=== PATIENT | male | born 1945 | race Caucasian/White ===

== ENCOUNTER 2018-04-04 18:22 | Emergency (ER) | payer MEDICARE, OTHER ==
[~2018-04-04] VITALS: Ht 180.3 cm; Wt 108.9 kg
[~2018-04-04 18:22] MED LIST: ALLO100 PO; ASPI325 PO; FAMC500 PO; LISI20 PO; LOPE2C PO; PRED20 PO; ROSU5 PO; SILSUL1TC TOP; TESTOSTERONE CREAM TOP; Zofran8 MG PO
== END 2018-04-04 20:54 | disposition home or self-care (01) ==
LOC: ER 18:22
DX: S63.204A Unspecified subluxation of right ring finger, initial encounter (principal); I10 Essential (primary) hypertension; E78.5 Hyperlipidemia, unspecified; Z79.899 Other long term (current) drug therapy; Z79.82 Long term (current) use of aspirin; W23.0XXA Caught, crushed, jammed, or pinched between moving objects, initial encounter
CPT/HCPCS: 73140

== ENCOUNTER → 2018-11-03 | Outpatient (CLI) | payer MEDICARE, OTHER ==
[~2018-11-03] MED LIST changes: +LOSA25 PO
== END | disposition home or self-care (01) ==
LOC: LAB SHORT 10:02 → PLD 10:02
DX: D22.62 Melanocytic nevi of left upper limb, including shoulder (principal)
CPT/HCPCS: 88305

== ENCOUNTER → 2018-11-17 | Outpatient (CLI) | payer MEDICARE | END | disposition home or self-care (01) | LOC: LAB SHORT 13:02 → PLD 13:02 | DX: C44.319 Basal cell carcinoma of skin of other parts of face (principal) | CPT/HCPCS: 88305 ==

== ENCOUNTER → 2018-11-23 | Outpatient (CLI) | payer MEDICARE, OTHER | END | disposition home or self-care (01) | LOC: LAB SHORT 13:42 → PLD 13:42 | DX: D03.62 Melanoma in situ of left upper limb, including shoulder (principal) | CPT/HCPCS: 88305 ==

== ENCOUNTER 2018-12-06 10:45 | Day surgery (SDC) | payer MEDICARE, OTHER ==
[~2018-12-06] VITALS: Ht 180.3 cm; Wt 107.0 kg
--- NOTE | 2018-12-06 12:00 | NUR ---
12/06/18 1200 Delvin Mcduffie INJECTED 5ML SALINE TO LIFT POLYP FOR REMOVAL.
--- NOTE | 2018-12-06 12:54 | NUR ---
12/06/18 1254 Delvin Mcduffie PT DENIES WANTING ANYTHING TO DRINK IN STEP DOWN.
== END 2018-12-06 12:45 | disposition home or self-care (01) ==
LOC: ORSCSDS 10:45
PROVIDERS: Internal Medicine Gastroenterology
PROC: 0DBH8ZX Excision of Cecum, Via Natural or Artificial Opening Endoscopic, Diagnostic (ICD-10-PCS; principal; 2018-12-06 12:30)
PROC: 0DBK8ZX Excision of Ascending Colon, Via Natural or Artificial Opening Endoscopic, Diagnostic (ICD-10-PCS; principal; 2018-12-06 12:30)
PROC: 0DBL8ZX Excision of Transverse Colon, Via Natural or Artificial Opening Endoscopic, Diagnostic (ICD-10-PCS; principal; 2018-12-06 12:30)
DX: Z12.11 Encounter for screening for malignant neoplasm of colon (principal); D12.0 Benign neoplasm of cecum; D12.2 Benign neoplasm of ascending colon; D12.3 Benign neoplasm of transverse colon; K57.30 Diverticulosis of large intestine without perforation or abscess without bleeding; E11.9 Type 2 diabetes mellitus without complications; Z79.899 Other long term (current) drug therapy
CPT/HCPCS: 82947; 88305; J7120

== ENCOUNTER → 2019-04-28 | Outpatient (CLI) | payer MEDICARE, OTHER ==
[~2019-04-28] MED LIST changes: +ALLER-TEC D 5-1 EACH PO; -ASPI325 PO; +ASPI81CH PO; +CLOP75 PO; +Isosorbide Mono30 MG PO; +Lopressor 25 mg25 MG PO; +Loratadine10 MG PO; +METO25ER PO; +NITR.4SL SL; +OMEPRAZOLE20 MG PO; +ROSU10TA PO; -ROSU5 PO; +Senna-Docusate1 EACH PO; +THERA1 EACH PO; +TICA90TA PO
[2019-04-29 14:40] LABS: Stool Occult Bld Immuno 1 Negative (NEGATIVE); Stool Occult Bld Immuno 2 Negative (NEGATIVE); Stool Occult Bld Immuno 3 Negative (NEGATIVE)
== END | disposition home or self-care (01) ==
LOC: LAB SHORT 18:45 → LAB 18:45 → LAB FUT 04-25 08:10
PROVIDERS: Internal Medicine
DX: D64.9 Anemia, unspecified (principal); Z79.899 Other long term (current) drug therapy
CPT/HCPCS: 82274

== ENCOUNTER 2019-05-20 06:39 | Observation (INO) | payer MEDICARE, OTHER ==
[~2019-05-20] VITALS: Ht 178 cm; Wt 99.8 kg
[~2019-05-20 06:39] MED LIST changes: -ALLER-TEC D 5-1 EACH PO; -CLOP75 PO; -Isosorbide Mono30 MG PO; -Lopressor 25 mg25 MG PO; -Loratadine10 MG PO; -METO25ER PO; -NITR.4SL SL; -OMEPRAZOLE20 MG PO; -Senna-Docusate1 EACH PO; -THERA1 EACH PO; -TICA90TA PO
[2019-05-20 07:00] LABS: BASOPHILS ABSOLUTE AUTO 0.12 K/mm3 (0.00-0.23); BASOPHILS PERCENT AUTO 1 % (0-2); EOSINOPHILS ABSOLUTE AUTO 0.45 K/mm3 (0.00-0.68); EOSINOPHILS PERCENT AUTO 3 % (0-6); Hematocrit 43.8 % (37.0-53.0); Hemoglobin 13.1 g/dL (13.5-17.5); IMMATURE GRAN PERCENT AUTO 1 % (0-1); LYMPHOCYTES ABSOLUTE AUTO 2.23 K/mm3 (0.84-5.20); LYMPHOCYTES PERCENT AUTO 14 % (21-46); MONOCYTES ABSOLUTE AUTO 1.17 K/mm3 (0.16-1.47); MONOCYTES PERCENT AUTO 8 % (4-13); Mean Corpuscular HGB 25.7 pg (26.0-34.0); Mean Corpuscular HGB Conc 29.9 g/dL (31.5-36.5); Mean Platelet Volume 9.8 fL (9.1-12.4); NEUTROPHILS ABSOLUTE AUTO 11.47 K/mm3 (1.96-9.15); NEUTROPHILS PERCENT AUTO 74 % (41-73); Platelet Count 498 K/mm3 (150-400); RDW Coefficient Variation 17.1 % (11.7-14.2); RDW Standard Deviation 53.1 fL (35.1-46.3); Red Blood Cell Count 5.09 M/mm3 (4.30-5.90); White Blood Cell Count 15.54 K/mm3 (4.00-11.30)
[2019-05-20 07:06] LABS: Mean Corpuscular Volume 86 fL (80-100)
[2019-05-20] MEDS ORDERED: Lopressor 25 mg25 MG PO (07:10)
[2019-05-20] MEDS ORDERED: TICA90TA PO (07:11)
[2019-05-20] MEDS ORDERED: NITR.4SL SL (07:11)
[2019-05-20] MEDS ORDERED: OMEPRAZOLE20 MG PO (07:12)
[2019-05-20] MEDS ORDERED: ALLER-TEC D 5-1 EACH PO (07:12)
[2019-05-20] MEDS ORDERED: THERA1 EACH PO (07:12)
[2019-05-20] MEDS ORDERED: Senna-Docusate1 EACH PO (07:13)
[2019-05-20 07:22] LABS: Albumin, Blood 3.7 g/dL (3.4-5.0); Albumin/Globulin Ratio 0.7 (0.8-1.8); Bilirubin, Total 0.4 mg/dL (0.1-1.0); Bun/Creatinine Ratio 15.4 (12.0-20.0); Calcium, Blood 9.8 mg/dL (8.5-10.1); Creatinine, Blood 1.36 mg/dL (0.60-1.20); Globulin, Blood 5.6 g/dL (2.2-4.0); Potassium, Blood 4.3 mmol/L (3.5-5.5); Total Protein, Blood 9.3 g/dL (6.4-8.2)
[2019-05-20 07:54] LABS: Troponin I 9.62 ng/mL (0.000-0.040)
--- NOTE | 2019-05-20 18:28 | NUR ---
pt laying in bed watching tv. denies any complaints or needs, states hes just hanging out. tr band site has occlusive dressing in place, no s/s bleeding. arm board in place, call light in reach.
[2019-05-21 00:44] LABS: Hematocrit 36.7 % (37.0-53.0); Hemoglobin 10.9 g/dL (13.5-17.5); Mean Corpuscular HGB 25.8 pg (26.0-34.0); Mean Corpuscular HGB Conc 29.7 g/dL (31.5-36.5); Mean Corpuscular Volume 87 fL (80-100); Mean Platelet Volume 9.8 fL (9.1-12.4); Platelet Count 379 K/mm3 (150-400); RDW Coefficient Variation 17.1 % (11.7-14.2); RDW Standard Deviation 54.2 fL (35.1-46.3); Red Blood Cell Count 4.22 M/mm3 (4.30-5.90)
[2019-05-21 00:59] LABS: Bun/Creatinine Ratio 16.8 (12.0-20.0); Calcium, Blood 8.6 mg/dL (8.5-10.1); Creatinine, Blood 1.25 mg/dL (0.60-1.20); Potassium, Blood 4.4 mmol/L (3.5-5.5)
--- NOTE | 2019-05-21 01:29 | NUR ---
Assumed care of pt at approx 1900. VSS. pt presents in bed, watching TV. Arm board in place, access site free from bleed, free from hematoma. Pt a&o, responds appropriately, able to make needs known. Pt able to amb without assist to bathroom independantly. Pt denies chest pain or pressure, denies SOB. See shift assessment for detailed assessment. Will continue to montior.
--- NOTE | 2019-05-21 06:36 | NUR ---
Shift Summary No acute changes this shift. VSS. Breathing remains easy and unlabored, RA, denies SOB. Pt denies chest pain/pressure. Pt slept through much of this shift. Pt states he is "ready to go home". Critical high trop, but trending down. Pt is independant in room. Will continue to monitor.
[2019-05-21] MEDS ORDERED: CLOP75 PO (10:38)
--- NOTE | 2019-05-21 11:42 | NUR ---
DISCHARGE PT DISCHARGED HOME VIA W/C ACCOMPANIED BY CREDIT REVIEW ANALYST. GAVE PT HAND WROTE PERSCRIPTION FOR PLAVIX. LIGHT BULB REPLACER SAT WITH PT / FOR HEART HEALTHY DIET. CONTINUE POT.
== END 2019-05-21 11:46 | disposition home or self-care (01) ==
LOC: ER 06:39 → PCU 07:34 → ICUW 07:36 → PCU 07:36
PROVIDERS: Emergency Medicine; ADMIT Internal Medicine Interventional Cardiology
PROC: 4A023N7 Measurement of Cardiac Sampling and Pressure, Left Heart, Percutaneous Approach (ICD-10-PCS; principal; 2019-05-20)
PROC: B2111ZZ Fluoroscopy of Multiple Coronary Arteries using Low Osmolar Contrast (ICD-10-PCS; principal; 2019-05-20)
DX: I21.09 ST elevation (STEMI) myocardial infarction involving other coronary artery of anterior wall (principal); I25.10 Atherosclerotic heart disease of native coronary artery without angina pectoris; E78.5 Hyperlipidemia, unspecified; I10 Essential (primary) hypertension; M10.9 Gout, unspecified; R77.8 Other specified abnormalities of plasma proteins; Z95.5 Presence of coronary angioplasty implant and graft; Z88.8 Allergy status to other drugs, medicaments and biological substances; Z79.82 Long term (current) use of aspirin; Z79.899 Other long term (current) drug therapy; Z96.653 Presence of artificial knee joint, bilateral; Z86.12 Personal history of poliomyelitis; Z98.1 Arthrodesis status
CPT/HCPCS: 36415; 71045; 80048; 80053; 82947; 83690; 84484; 85025; 85027; 93005; 93010; 93454; 93458; 99152; 99153; 99285-25; C1769; C1894; G0378; J1644; J2250; J3010; J7030; J7040; Q9967

== ENCOUNTER 2019-06-14 19:07 | Inpatient (IN) | payer MEDICARE, OTHER ==
[~2019-06-14] VITALS: Ht 180.3 cm; Wt 101.2 kg
[~2019-06-14 19:07] MED LIST changes: +ALLER-TEC D 5-1 EACH PO; +CLOP75 PO; +Lopressor 25 mg25 MG PO; +NITR.4SL SL; +OMEPRAZOLE20 MG PO; +Senna-Docusate1 EACH PO; +THERA1 EACH PO; +TICA90TA PO
[2019-06-14 19:28] LABS: BASOPHILS ABSOLUTE AUTO 0.13 K/mm3 (0.00-0.23); BASOPHILS PERCENT AUTO 1 % (0-2); EOSINOPHILS PERCENT AUTO 8 % (0-6); Hemoglobin 11.5 g/dL (13.5-17.5); IMMATURE GRAN ABSOLUTE AUTO 0.03 K/mm3 (0.00-0.10); IMMATURE GRAN PERCENT AUTO 0 % (0-1); LYMPHOCYTES ABSOLUTE AUTO 2.04 K/mm3 (0.84-5.20); LYMPHOCYTES PERCENT AUTO 22 % (21-46); MONOCYTES ABSOLUTE AUTO 0.72 K/mm3 (0.16-1.47); MONOCYTES PERCENT AUTO 8 % (4-13); Mean Corpuscular HGB 25.8 pg (26.0-34.0); Mean Corpuscular HGB Conc 30.3 g/dL (31.5-36.5); Mean Corpuscular Volume 85 fL (80-100); Mean Platelet Volume 9.8 fL (9.1-12.4); NEUTROPHILS ABSOLUTE AUTO 5.51 K/mm3 (1.96-9.15); NEUTROPHILS PERCENT AUTO 60 % (41-73); Platelet Count 356 K/mm3 (150-400); RDW Coefficient Variation 16.9 % (11.7-14.2); RDW Standard Deviation 52.4 fL (35.1-46.3); Red Blood Cell Count 4.45 M/mm3 (4.30-5.90); White Blood Cell Count 9.13 K/mm3 (4.00-11.30)
[2019-06-14 19:52] LABS: Alanine Aminotransfer (ALT/SGP 16 U/L (12-78); Albumin, Blood 3.5 g/dL (3.4-5.0); Albumin/Globulin Ratio 0.8 (0.8-1.8); Alk Phos 104 U/L (50-136); Anion Gap 7 mmol/L (6-16); Aspartate Aminotrans (AST/SGOT 27 U/L (12-37); Bilirubin, Total 0.2 mg/dL (0.1-1.0); Blood Urea Nitrogen 16 mg/dL (8-24); Bun/Creatinine Ratio 13.4 (12.0-20.0); CO2, Blood 25 mmol/L (21-32); Calcium, Blood 8.8 mg/dL (8.5-10.1); Chloride, Blood 107 mmol/L (98-108); Creatinine, Blood 1.19 mg/dL (0.60-1.20); Globulin, Blood 4.6 g/dL (2.2-4.0); Glomerular Filtration Rate >60 (60-); Glucose, Blood 139 mg/dL (70-99); International Normalized Ratio 0.93; Potassium, Blood 3.6 mmol/L (3.5-5.5); Prothrombin Time Results 9.9 Sec (9.7-11.5); Sodium, Blood 139 mmol/L (136-145); Total Protein, Blood 8.1 g/dL (6.4-8.2)
[2019-06-14 22:04] LABS: Percent Saturation 16.2 % (20.0-50.0)
[2019-06-15 03:28] LABS: BASOPHILS ABSOLUTE AUTO 0.14 K/mm3 (0.00-0.23); BASOPHILS PERCENT AUTO 2 % (0-2); EOSINOPHILS ABSOLUTE AUTO 0.76 K/mm3 (0.00-0.68); EOSINOPHILS PERCENT AUTO 9 % (0-6); Hemoglobin 11.1 g/dL (13.5-17.5); IMMATURE GRAN ABSOLUTE AUTO 0.03 K/mm3 (0.00-0.10); IMMATURE GRAN PERCENT AUTO 0 % (0-1); LYMPHOCYTES ABSOLUTE AUTO 2.17 K/mm3 (0.84-5.20); LYMPHOCYTES PERCENT AUTO 27 % (21-46); MONOCYTES ABSOLUTE AUTO 0.61 K/mm3 (0.16-1.47); MONOCYTES PERCENT AUTO 8 % (4-13); Mean Corpuscular HGB 26.2 pg (26.0-34.0); Mean Corpuscular Volume 87 fL (80-100); Mean Platelet Volume 9.5 fL (9.1-12.4); NEUTROPHILS ABSOLUTE AUTO 4.43 K/mm3 (1.96-9.15); NEUTROPHILS PERCENT AUTO 54 % (41-73); Platelet Count 308 K/mm3 (150-400); RDW Coefficient Variation 16.9 % (11.7-14.2); Red Blood Cell Count 4.24 M/mm3 (4.30-5.90); White Blood Cell Count 8.14 K/mm3 (4.00-11.30)
--- NOTE | 2019-06-15 04:07 | NUR ---
SHIFT SUMMARY RECEIVED REPORT FROM ED RN. PATIENT ARRIVED TO MEDICAL UNIT VIA STRETCHER. ABLE TO SELF TRANSFER TO BED. ORIENTED TO ROOM AND CALL SYSTEM. A/O, ABLE TO MAKE NEEDS KNOWN. COOPERATIVE WITH CARE. ANSWERS QUESTIONS APPROPRIATELY. NO C/O PAIN/DISCOMFORT OR SOB. HEPARIN DRIP INFUSING W/O COMPLICATION TO LAC FIELD. APPEARED TO REST MUCH OF THE NIGHT. NO ACUTE CHANGES. VSS/AFEBRILE. BED IN LOWEST POSITION. CALL LIGHT AND BELONGINGS WITHIN REACH. WCTM. REPORT TO ONCOMING RN.
--- NOTE | 2019-06-15 13:40 | NUR ---
PT TO SURGICAL DEPT FOR PROCEDURE
--- NOTE | 2019-06-15 15:15 | NUR ---
PT TRANSFERRED FROM [facility] OPERATOR TO ICU 13. REPORT RECIEVED FROM MICHAEL ALVAREZ. CALL TO MEDICAL FLOOR AND REPORT RECIEVED FROM ADA RN. PT HAS TR BAND TO RIGHT WRIST, NO SIGNS OF BLEEDING, OOZING, KNOTS. VSS. FAMILY AT BEDSIDE. NO FURTHER NEEDS OR CONCERNS AT THIS TIME.
--- NOTE | 2019-06-15 17:33 | NUR ---
SHIFT SUMMARY: PT IS PCU STATUS. TR BAND IN PLACE WITH NO SIGNS OF BLEEDING, DRAINAGE OR HEMATOMA. FAMILY AT BEDSIDE. MEDICATED ONCE FOR PAIN WITH TYLENOL. VSS, NO FURTHER NEEDS OR CONCERNS AT THIS TIME.
--- NOTE | 2019-06-15 19:20 | NUR ---
RECIEVED HAND OFF FROM KIM BINGHAM USING SBAR DURING BEDSIDE REPORT. LYING IN LOW FOWLERS WITH EYES CLOSED. AAO X3, MANE, FOLLOWS ALL COMMANDS. REORIENTED TO ROOM, CALL SYSTEM, AND POC, VOICES UNDERSTANDING. RESPIRATIONS EVEN AND UNLABORED ON ROOM AIR. LUNG SOUNDS CLEAR BILATERALLY. ABDOMEN SOFT AND NONDISTENDED. BOWEL SOUNDS PRESENT IN ALL QUADS. LEFT AC 18G FIELD START SL PIV IS PATENT, FLUSHING WITH EASE. TR BAND ASSESSED, HOMEOSTASIS NOTED. 2ML AIR REMOVED. SITE MONITORED FOR 2 MIN, HOMEOSTASIS MAINTINED. CONTINENT OF BOWEL AND BLADDER, USES URINAL AT BEDSIDE. LACEY HOSE IN PLACE. DEINES PAIN, DISCOMFORT, OR FURTHER NEEDS AT THIS TMME. WILL CONTINUE TO MONITOR.
--- NOTE | 2019-06-15 19:50 | NUR ---
TR BAND ASSESSED, HOMEOSTASIS NOTED. 2ML AIR REMOVED. SITE MONITORED FOR 2 MIN, HOMEOSTASIS MAINTINED. DEINES PAIN, DISCOMFORT, OR FURTHER NEEDS AT THIS TMME. WILL CONTINUE TO MONITOR.
--- NOTE | 2019-06-15 20:20 | NUR ---
TR BAND ASSESSED, HOMEOSTASIS NOTED. 2ML AIR REMOVED. SITE MONITORED FOR 2 MIN, HOMEOSTASIS MAINTINED. DENIES PAIN, DISCOMFORT, OR FURTHER NEEDS AT THIS TIME. WILL CONTINUE TO MONITOR.
--- NOTE | 2019-06-15 21:50 | NUR ---
TR BAND ASSESSED, HOMEOSTASIS NOTED. FINAL 2ML AIR REMOVED. SITE MONITORED FOR 2 MIN, HOMEOSTASIS MAINTINED. DENIES PAIN, DISCOMFORT, OR FURTHER NEEDS AT THIS TIME. WILL CONTINUE TO MONITOR.
--- NOTE | 2019-06-15 23:00 | NUR ---
TR BAND REMOVED AFTER 1HR PAST DEFLATION TIME. NO SWELLING, OOZING, BLEEDING, OR HEMATOMAS NOTED. AREA CLEANED WITH CHG AND OPSITE TEGADERM APPLIED, TOLERATED WELL. GOOD DISTAL PULSES NOTED, DENIES NUMBNESS OR TINGLING AT THIS TIME. WHITE ARMBOARD REAPPLIED, INSTRUCTED TO LEAVE INPLACE FOR 48HRS. REPORT CALLED TO KIM LOCO USING SBAR. ALL PERSONAL BELONGINGS GATHERED AND TAKEN WITH PT VIA WHEELCHAIR TO PCU ROOM 4. TRANSFERED SELF FROM WHEELCHAIR TO BED WITH STANDBY ASSIST, TOLERATED WELL. SAFETY MEASURES IN PLACE.
--- NOTE | 2019-06-15 23:13 | NUR ---
Pt arrived to PCU 4 at approx 2305 via wheelchair with cyber incident responder and ICU CN with pt. Pt able to transfer from wheelchair to bed independantly. Pt denies chest pain, denies chest pressure, denies SOB. Pt denies lightheadedness with changes in positions. Lungs clear throughout, breathing easy, even and unlabored. Pt on tele and NSR with HR 70. O2 stable on RA. Pt in no apparent sign of distress. R Radial access site visualized with BACK SIZERKarolina. Site soft, free from hematoma, free from bleed. Transparent tegaderm in place, arm board in place. Pt verbalized R arm restrictions. Will continue to monitor.
[2019-06-16 04:26] LABS: BASOPHILS ABSOLUTE AUTO 0.11 K/mm3 (0.00-0.23); BASOPHILS PERCENT AUTO 1 % (0-2); EOSINOPHILS ABSOLUTE AUTO 0.65 K/mm3 (0.00-0.68); EOSINOPHILS PERCENT AUTO 7 % (0-6); Hematocrit 37.5 % (37.0-53.0); Hemoglobin 11.3 g/dL (13.5-17.5); IMMATURE GRAN ABSOLUTE AUTO 0.03 K/mm3 (0.00-0.10); IMMATURE GRAN PERCENT AUTO 0 % (0-1); LYMPHOCYTES ABSOLUTE AUTO 1.15 K/mm3 (0.84-5.20); LYMPHOCYTES PERCENT AUTO 12 % (21-46); MONOCYTES ABSOLUTE AUTO 0.73 K/mm3 (0.16-1.47); MONOCYTES PERCENT AUTO 8 % (4-13); Mean Corpuscular HGB Conc 30.1 g/dL (31.5-36.5); Mean Corpuscular Volume 86 fL (80-100); Mean Platelet Volume 9.8 fL (9.1-12.4); NEUTROPHILS ABSOLUTE AUTO 6.92 K/mm3 (1.96-9.15); NEUTROPHILS PERCENT AUTO 72 % (41-73); Platelet Count 314 K/mm3 (150-400); RDW Coefficient Variation 16.9 % (11.7-14.2); RDW Standard Deviation 53.3 fL (35.1-46.3); Red Blood Cell Count 4.35 M/mm3 (4.30-5.90); White Blood Cell Count 9.59 K/mm3 (4.00-11.30)
[2019-06-16 04:45] LABS: Anion Gap 5 mmol/L (6-16); Blood Urea Nitrogen 17 mg/dL (8-24); Bun/Creatinine Ratio 14.8 (12.0-20.0); CHOL/HDL RATIO 2.3; CO2, Blood 26 mmol/L (21-32); Calcium, Blood 8.8 mg/dL (8.5-10.1); Chloride, Blood 107 mmol/L (98-108); Cholesterol 98 mg/dL (50-200); Creatinine, Blood 1.15 mg/dL (0.60-1.20); Glomerular Filtration Rate >60 (60-); Glucose, Blood 126 mg/dL (70-99); HDL Cholesterol 43 mg/dL (>39); LDL/HDL RATIO 0.8; Low Density Lipoprotein Chol 35 mg/dL (0-110); Potassium, Blood 4.5 mmol/L (3.5-5.5); Sodium, Blood 138 mmol/L (136-145); Triglycerides 102 mg/dL (30-160); Very Low Density Lipoprot Chol 20 mg/dL (6-32)
--- NOTE | 2019-06-16 07:42 | NUR ---
Shift Summary No acute changes since assuming care of pt this shift. Pt remains with VSS, no apparent sign of distress, breathing remains easy and unlabored, RA, MANE, uses call light appropriately, ambulates without assistance to bathroom to void in urinal, compliant with R arm restriction, arm board in place. No changes from intial transfer assessment. No acute events on tele. Pt denies chest pain/ pressure. Introduced to day RNKarla, and care assumed.
[2019-06-16] MEDS ORDERED: Isosorbide Mono30 MG PO (09:47)
[2019-06-16] MEDS ORDERED: Loratadine10 MG PO (09:48)
[2019-06-16] MEDS ORDERED: METO25ER PO (09:48)
--- NOTE | 2019-06-16 10:20 | NUR ---
ASSUMED CARE PT ALERT AND ORIENTED. VS STABLE. SOLAR PANEL INSTALLER IN THIS AM WITH INSTRUCTIONS FOR PT FOR DISCHARGE. ORDERS FOR DISCHARGE PROVIDED. PT GIVEN DISCHARGE INSTRUCTIONS. NEW MEDICATIONS EXPLAINED TO PT. PT EDUCATED ON CARE AFTER ANGIOGRAM. ALL QUESTIONS ANSWERED. PT WAITING FOR HIS .
== END 2019-06-16 10:39 | disposition home or self-care (01) | DRG 287 ==
LOC: ER 19:07 → MEDS 19:08 → ICUW 06-15 15:10 → PCU 06-15 23:05
PROVIDERS: Emergency Medicine; Internal Medicine Cardiovascular Disease; ADMIT Internal Medicine
PROC: B2111ZZ Fluoroscopy of Multiple Coronary Arteries using Low Osmolar Contrast (ICD-10-PCS; principal; 2019-06-15)
PROC: B241ZZ3 Ultrasonography of Multiple Coronary Arteries, Intravascular (ICD-10-PCS; 2019-06-15)
DX: I25.110 Atherosclerotic heart disease of native coronary artery with unstable angina pectoris (principal); I10 Essential (primary) hypertension; M10.9 Gout, unspecified; E78.5 Hyperlipidemia, unspecified; G14 Postpolio syndrome; Z98.1 Arthrodesis status; Z96.653 Presence of artificial knee joint, bilateral; Z79.82 Long term (current) use of aspirin; E66.9 Obesity, unspecified; Z68.30 Body mass index [BMI] 30.0-30.9, adult; Z95.5 Presence of coronary angioplasty implant and graft; E11.9 Type 2 diabetes mellitus without complications; Z79.02 Long term (current) use of antithrombotics/antiplatelets; D64.9 Anemia, unspecified
CPT/HCPCS: 36415; 71046; 76937; 80048; 80053; 80061; 82728; 83036; 83540; 83550; 84443; 84484; 85025; 85347; 85610; 85730; 92978; 93005; 93010; 93306; 93454; 93798; 96365; 96366; 96376; 99152; 99153; 99285-25; A9270; C1753; C1769; C1887; C1894; G0378; J1644; J2250; J3010; J7030; Q9967

== ENCOUNTER 2020-04-12 14:32 | Emergency (ER) | payer MEDICARE, OTHER ==
[~2020-04-12] VITALS: Ht 180.3 cm; Wt 99.8 kg
[~2020-04-12 14:32] MED LIST changes: -ASPI81CH PO; +Aspirin EC81 MG PO; +Daily Multiple1 EACH PO; +Isosorbide Mono30 MG PO; +Loratadine10 MG PO; +METO25ER PO; -THERA1 EACH PO
[2020-04-12] MEDS ORDERED: MONT10T PO (14:37)
[2020-04-12 14:43] LABS: BASOPHILS ABSOLUTE AUTO 0.12 K/mm3 (0.00-0.23); BASOPHILS PERCENT AUTO 1 % (0-2); EOSINOPHILS ABSOLUTE AUTO 0.38 K/mm3 (0.00-0.68); EOSINOPHILS PERCENT AUTO 3 % (0-6); Hematocrit 45.7 % (37.0-53.0); Hemoglobin 14.9 g/dL (13.5-17.5); IMMATURE GRAN ABSOLUTE AUTO 0.05 K/mm3 (0.00-0.10); IMMATURE GRAN PERCENT AUTO 0 % (0-1); LYMPHOCYTES ABSOLUTE AUTO 3.08 K/mm3 (0.84-5.20); LYMPHOCYTES PERCENT AUTO 27 % (21-46); MONOCYTES ABSOLUTE AUTO 0.83 K/mm3 (0.16-1.47); MONOCYTES PERCENT AUTO 7 % (4-13); Mean Corpuscular HGB 28.6 pg (26.0-34.0); Mean Corpuscular HGB Conc 32.6 g/dL (31.5-36.5); Mean Corpuscular Volume 88 fL (80-100); Mean Platelet Volume 10.2 fL (9.1-12.4); NEUTROPHILS PERCENT AUTO 61 % (41-73); Platelet Count 314 K/mm3 (150-400); RDW Coefficient Variation 14.7 % (11.7-14.2); RDW Standard Deviation 47.6 fL (35.1-46.3); Red Blood Cell Count 5.21 M/mm3 (4.30-5.90); White Blood Cell Count 11.36 K/mm3 (4.00-11.30)
[2020-04-12 14:57] LABS: International Normalized Ratio 0.97; Prothrombin Time Results 10.4 Sec (9.7-11.5)
[2020-04-12 15:06] LABS: Albumin, Blood 3.8 g/dL (3.4-5.0); Albumin/Globulin Ratio 0.9 (0.8-1.8); Bilirubin, Total 0.3 mg/dL (0.1-1.0); Calcium, Blood 8.7 mg/dL (8.5-10.1); Creatinine, Blood 1.28 mg/dL (0.60-1.20); Globulin, Blood 4.2 g/dL (2.2-4.0); Potassium, Blood 3.9 mmol/L (3.5-5.5)
== END 2020-04-12 21:48 | disposition home or self-care (01) ==
LOC: ER 14:32
PROVIDERS: Student in an Organized Health Care Education/Training Program
DX: G45.9 Transient cerebral ischemic attack, unspecified (principal); I10 Essential (primary) hypertension; E11.9 Type 2 diabetes mellitus without complications; E78.5 Hyperlipidemia, unspecified; M10.9 Gout, unspecified; I25.2 Old myocardial infarction; Z79.899 Other long term (current) drug therapy; Z79.82 Long term (current) use of aspirin; Z79.02 Long term (current) use of antithrombotics/antiplatelets
CPT/HCPCS: 36415; 70450; 70544; 70549; 70551; 80053; 85025; 85610; 93005; 93010; 99285-25; A9577

== ENCOUNTER 2023-09-02 09:59 | Day surgery (SDC) | payer MEDICARE, OTHER ==
[~2023-09-02] VITALS: Ht 180.3 cm; Wt 96.4 kg
[~2023-09-02 09:59] MED LIST changes: +AMOCLA875 PO; +MONT10T PO
[2023-09-02] MEDS ORDERED: METOPROLOL SUCC25 MG PO (10:37)
[2023-09-02] MEDS ORDERED: FELODIPINE ER5 M2 PO (10:38)
[2023-09-02] MEDS ORDERED: LOSA50 PO (10:38)
[2023-09-02] MEDS ORDERED: METFORMIN HCL500 M3 PO (10:38)
--- NOTE | 2023-09-02 10:44 | NUR ---
09/02/23 1044 Avani Bergeron 1 DROP OF TETRACAINE ADMINISTERED TO THE R EYE AT 1039, PLEDGET PLACED IN R EYE AT 1041 BY [facility].CHELLY PT MARLENY WELL
[2023-09-02 11:40] VITALS: BP 119/62
== END 2023-09-02 11:53 | disposition home or self-care (01) ==
LOC: ORSCSDS 09:59
PROVIDERS: Ophthalmology
PROC: 08RJ3JZ Replacement of Right Lens with Synthetic Substitute, Percutaneous Approach (ICD-10-PCS; principal; 2023-09-02 11:30)
DX: E11.36 Type 2 diabetes mellitus with diabetic cataract (principal); H25.11 Age-related nuclear cataract, right eye; J45.909 Unspecified asthma, uncomplicated; I25.2 Old myocardial infarction; I10 Essential (primary) hypertension; E78.5 Hyperlipidemia, unspecified; E66.9 Obesity, unspecified; Z68.29 Body mass index [BMI] 29.0-29.9, adult; Z86.73 Personal history of transient ischemic attack (TIA), and cerebral infarction without residual deficits; Z79.84 Long term (current) use of oral hypoglycemic drugs; Z79.899 Other long term (current) drug therapy
CPT/HCPCS: 82947; J2250; J3010; J3301; J7040; V2632

== ENCOUNTER 2023-09-09 10:08 | Day surgery (SDC) | payer MEDICARE, OTHER ==
[~2023-09-09] VITALS: Ht 180.3 cm; Wt 96.1 kg
[~2023-09-09 10:08] MED LIST changes: +FELODIPINE ER5 M2 PO; +LOSA50 PO; +METFORMIN HCL500 M3 PO; +METOPROLOL SUCC25 MG PO
--- NOTE | 2023-09-09 10:49 | NUR ---
09/09/23 Tara9 Dannielle Brown 1037, CHANDU 1034
[2023-09-09 11:47] VITALS: BP 138/64
--- NOTE | 2023-09-09 12:01 | NUR ---
09/09/23 1201 Iker Fraser IV REMOVED INTACT. SITE WNL.
== END 2023-09-09 11:57 | disposition home or self-care (01) ==
LOC: ORSCSDS 10:08
PROVIDERS: Ophthalmology
PROC: 08RK3JZ Replacement of Left Lens with Synthetic Substitute, Percutaneous Approach (ICD-10-PCS; principal; 2023-09-09 11:30)
DX: E11.36 Type 2 diabetes mellitus with diabetic cataract (principal); H25.12 Age-related nuclear cataract, left eye; Z96.1 Presence of intraocular lens; I10 Essential (primary) hypertension; I25.10 Atherosclerotic heart disease of native coronary artery without angina pectoris; Z86.73 Personal history of transient ischemic attack (TIA), and cerebral infarction without residual deficits; Z79.84 Long term (current) use of oral hypoglycemic drugs; Z79.899 Other long term (current) drug therapy
CPT/HCPCS: 82947; J2250; J3010; J3301; J7040; V2632

== ENCOUNTER → 2024-10-31 | Outpatient (CLI) | payer MEDICARE, OTHER | END | disposition home or self-care (01) | LOC: LAB 12:26 → LAB SHORT 12:26 | DX: L08.0 Pyoderma (principal) | CPT/HCPCS: 87070; 87205 ==